=== PATIENT | female | born 1970 | race Caucasian/White ===

== ENCOUNTER 2017-01-18 05:48 | Inpatient (IN) | payer OTHER ==
[~2017-01-18] VITALS: Ht 152.4 cm; Wt 132.5 kg
[2017-01-18 06:28] LABS: BILIRUBIN NEGATIVE (NEGATIVE); BLOOD NEGATIVE Ery/uL (NEGATIVE); CLARITY CLEAR (CLEAR); COLOR YELLOW (YELLOW); GLUCOSE (U) NORMAL (NORMAL); KETONE (U) TRACE mg/dL (NEGATIVE); LEUKOCYTES NEGATIVE Leu/uL (NEGATIVE); NITRITE NEGATIVE (NEGATIVE); PROTEIN 1+ mg/dL (NEGATIVE); SPECIFIC GRAVITY >=1.030 (1.001-1.030); pH 5.5 (5.0-9.0)
[2017-01-18 06:29] LABS: WBC 15.9 K/uL (4.0-10.5)
[2017-01-18 06:30] LABS: HGB 16.4 g/dl (12.5-16.0); MCHC 33.5 g/dL (32.0-36.0); MCV 89.7 fL (78.0-100.0); RBC 5.46 M/uL (4.20-5.40)
[2017-01-18 06:31] LABS: PLT 330 K/uL (150-400)
[2017-01-18 06:43] LABS: BACTERIA 1+
[2017-01-18 06:48] LABS: ALBUMIN 4.7 g/dL (3.5-5.0); CREATININE 0.5 mg/dL (0.5-1.0); GLOBULIN (CALCULATION) 3.3 g/dL (2.2-4.2); POTASSIUM 4.9 mmol/L (3.5-5.1)
[2017-01-18 06:50] LABS: LACTIC ACID 2.6 mmol/L (0.5-2.2)
[2017-01-19 05:32] LABS: BASOPHIL 0.2 % (0-2); EOSINOPHIL 0.2 % (0-5); HCT 43.2 % (37.0-47.0); HGB 14.7 g/dl (12.5-16.0); LYMPHOCYTE 12.2 % (15-48); MCH 30.4 pg (25.0-31.0); MCV 89.4 fL (78.0-100.0); MONOCYTE 7.9 % (0-12); MPV 8.9 fL (6.0-9.5); NEUTROPHIL 79.5 % (41-80); PLT 291 K/uL (150-400); RBC 4.83 M/uL (4.20-5.40); RDW 14.7 % (11.5-14.0); WBC 12.6 K/uL (4.0-10.5)
[2017-01-19 05:55] LABS: ALBUMIN 3.4 g/dL (3.5-5.0); BILIRUBIN - TOTAL 1.5 mg/dL (0.1-1.0); CREATININE 0.6 mg/dL (0.5-1.0); GLOBULIN (CALCULATION) 2.7 g/dL (2.2-4.2); POTASSIUM 3.7 mmol/L (3.5-5.1); TOTAL PROTEIN 6.1 g/dL (6.4-8.3)
--- NOTE | 2017-01-19 13:03 | NUR ---
AT 0930 HOOK CATH REMOVED PER MD ORDER WITH TIP INTACT. INSTRUCTED TO CALL FOR ASSIST TO BATHROOM
[2017-01-20 05:54] LABS: HCT 39.7 % (37.0-47.0); HGB 13.3 g/dl (12.5-16.0); MCH 30.5 pg (25.0-31.0); MCHC 33.5 g/dL (32.0-36.0); MCV 91.1 fL (78.0-100.0); MPV 9.1 fL (6.0-9.5); RBC 4.36 M/uL (4.20-5.40); RDW 14.6 % (11.5-14.0); WBC 14.8 K/uL (4.0-10.5)
[2017-01-20 06:23] LABS: CREATININE 0.4 mg/dL (0.5-1.0); POTASSIUM 3.7 mmol/L (3.5-5.1)
[2017-01-20] MEDS ORDERED: NORCO 5-325 TA1 EAC1 PO (16:53)
[2017-01-20] MEDS ORDERED: COLACE100 MG PO (16:53)
== END 2017-01-20 14:03 | disposition home or self-care (01) | DRG 327 ==
LOC: FER 05:48 → FAS 08:56 → FTCU 13:44 → FMS 01-19 11:35
PROVIDERS: Emergency Medicine; Surgery; ADMIT Internal Medicine Cardiovascular Disease
PROC: 0BUS4JZ (ICD-10-PCS; 2017-01-18)
PROC: 0BUR4JZ (ICD-10-PCS; 2017-01-18)
PROC: 0WUF4JZ Supplement Abdominal Wall with Synthetic Substitute, Percutaneous Endoscopic Approach (ICD-10-PCS; principal; 2017-01-18 11:00)
DX: K43.0 Incisional hernia with obstruction, without gangrene (principal); Z68.43 Body mass index [BMI] 50.0-59.9, adult; E66.9 Obesity, unspecified; I10 Essential (primary) hypertension; K43.6 Other and unspecified ventral hernia with obstruction, without gangrene; E11.9 Type 2 diabetes mellitus without complications; E78.5 Hyperlipidemia, unspecified; G47.33 Obstructive sleep apnea (adult) (pediatric); M06.9 Rheumatoid arthritis, unspecified; Z98.84 Bariatric surgery status; Z88.0 Allergy status to penicillin; Z79.899 Other long term (current) drug therapy
CPT/HCPCS: 36415; 80048; 80053; 81001; 82962; 83605; 83690; 85025; 87040; 87088; 94010; 94660; C1781; J1170; J1885; J2270; J2405; J2543; J2704; J2710; J3010; Q9967